=== PATIENT | female | born 1995 | race Caucasian/White ===

== ENCOUNTER 2016-07-12 09:02 | Emergency (ER) | payer OTHER ==
[~2016-07-12] VITALS: Ht 149.9 cm; Wt 56.2 kg
[2016-07-12 09:03] VITALS: BP 118/78
[2016-07-12] MEDS ORDERED: MUCI600T34 PO (09:10)
[2016-07-12] MEDS ORDERED: AUGM875T27 PO (10:28)
== END 2016-07-12 10:32 | disposition home or self-care (01) ==
LOC: M ED 10:09
DX: J02.9 Acute pharyngitis, unspecified (principal); J35.8 Other chronic diseases of tonsils and adenoids; H92.09 Otalgia, unspecified ear